=== PATIENT | male | born 1965 | race Caucasian/White ===

== ENCOUNTER 2020-10-02 18:21 | Inpatient (IN) | payer OTHER ==
[~2020-10-02] VITALS: Ht 175.3 cm; Wt 68.6 kg
[~2020-10-02 18:21] MED LIST: ALBUTEROL0.63 MG/3 INH; ALDACTONE 25MG25 MG PO; ASPIRIN EC81 MG PO; ATORVASTATIN CA20 MG PO; BUMETANIDE1 MG PO; CARVEDILOL12.5 MG PO; DIGOX125 MCG PO; DIGOXIN125 MCG PO; ELIQUIS5 MG PO; FUROSEMIDE20 MG PO; FUROSEMIDE40 MG PO; IPRAT-ALBUT 0.5-3 ML INH; LASIX TAB 20 MG20 MG PO; LASIX40 MG PO; LEVOPHED DRIP; LIPITOR40 MG PO; LISINOPRIL10 MG PO; LOPRESSOR 25 MG25 MG PO; MELATONIN3 MG PO; MEROPENEM; METOPROLOL SUCC25 MG PO; METOPROLOL SUCC50 MG PO; PREDNISONE20 MG PO; PROTONIX40 MG PO; VANCOMYCIN; [UNRECOGNIZED DRUG - REMARK]; heparin drip
[2020-10-02 20:54] LABS: RED BLOOD COUNT 5.69 M/UL (4.20-5.50); WHITE BLOOD COUNT 10.2 K/UL (4.5-11.0)
[2020-10-02 21:09] LABS: BUN/CREATININE RATIO 28 (0-10)
[2020-10-03 04:20] LABS: HEMOGLOBIN 13.7 gm/dl (14.0-17.5); RED BLOOD COUNT 5.98 M/UL (4.20-5.50); WHITE BLOOD COUNT 9.7 K/UL (4.5-11.0)
[2020-10-03 04:42] LABS: BUN/CREATININE RATIO 22 (0-10)
[2020-10-03] MEDS ORDERED: VENTOLIN HFA 66.7 GM INH (11:09)
[2020-10-03] MEDS ORDERED: DIURETIC SOFTGE50 MG PO (11:17)
[2020-10-03] MEDS ORDERED: TOPROL XL25 MG PO (11:19)
[2020-10-03] MEDS ORDERED: ATORVASTATIN CA40 MG PO (16:55)
[2020-10-03] MEDS ORDERED: ALBUTEROL2.5 MG/3 M INH (17:43)
[2020-10-03] MEDS ORDERED: ADULT LOW DOSE81 MG PO (19:28)
[2020-10-05 05:45] LABS: WHITE BLOOD COUNT 7.4 K/UL (4.5-11.0)
[2020-10-05 05:58] LABS: HEMOGLOBIN 11.6 gm/dl (14.0-17.5); RED BLOOD COUNT 5.08 M/UL (4.20-5.50)
[2020-10-05 06:07] LABS: BUN/CREATININE RATIO 20 (0-10)
[2020-10-06 05:55] LABS: BUN/CREATININE RATIO 18 (0-10)
[2020-10-08] MEDS ORDERED: JANTOVEN7.5 MG PO (16:02)
[2020-10-08] MEDS ORDERED: ENOXAPARIN100 MG/1 M SC (16:10)
[2020-10-09] MEDS ORDERED: JANTOVEN7.5 MG PO (14:30)
== END 2020-10-09 17:33 | disposition home or self-care (01) | DRG 175 ==
LOC: ER1 18:21 → MED SURG 4 23:34 → CDU 23:34 → MED SURG 4 10-03 19:11
PROVIDERS: Emergency Medicine; Internal Medicine; Internal Medicine Infectious Disease; ADMIT Internal Medicine
DX: I26.99 Other pulmonary embolism without acute cor pulmonale (principal); I50.43 Acute on chronic combined systolic (congestive) and diastolic (congestive) heart failure; I13.0 Hypertensive heart and chronic kidney disease with heart failure and stage 1 through stage 4 chronic kidney disease, or unspecified chronic kidney disease; I42.9 Cardiomyopathy, unspecified; M48.54XA Collapsed vertebra, not elsewhere classified, thoracic region, initial encounter for fracture; N18.30 Chronic kidney disease, stage 3 unspecified; E78.5 Hyperlipidemia, unspecified; K21.9 Gastro-esophageal reflux disease without esophagitis; I27.20 Pulmonary hypertension, unspecified; Z20.822 Contact with and (suspected) exposure to COVID-19; F11.10 Opioid abuse, uncomplicated; F17.210 Nicotine dependence, cigarettes, uncomplicated; R91.8 Other nonspecific abnormal finding of lung field; J44.9 Chronic obstructive pulmonary disease, unspecified; Z83.3 Family history of diabetes mellitus; Z91.19 Patient's noncompliance with other medical treatment and regimen; Z82.49 Family history of ischemic heart disease and other diseases of the circulatory system; Z79.01 Long term (current) use of anticoagulants; Z88.2 Allergy status to sulfonamides
CPT/HCPCS: 36415; 71045; 80048; 80053; 80307; 81001; 82550; 82553; 83605; 83690; 83735; 83874; 83880; 84484; 85025; 85379; 85610; 85730; 87040; 93005; 94640; 94664; 94760; 96372; 96374; 99285; G0378; J1650; J2270; Q9967; U0002

== ENCOUNTER 2020-12-12 13:54 | Emergency (ER) | payer OTHER ==
[~2020-12-12 13:54] MED LIST changes: +ADULT LOW DOSE81 MG PO; +ALBUTEROL2.5 MG/3 M INH; +ATORVASTATIN CA40 MG PO; +DIURETIC SOFTGE50 MG PO; +ENOXAPARIN100 MG/1 M SC; +JANTOVEN7.5 MG PO; +TOPROL XL25 MG PO; +VENTOLIN HFA 66.7 GM INH
[2020-12-12 15:19] LABS: HEMOGLOBIN 15.5 gm/dl (14.0-17.5); RED BLOOD COUNT 6.11 M/UL (4.20-5.50); WHITE BLOOD COUNT 8.5 K/UL (4.5-11.0)
[2020-12-12 15:54] LABS: BUN/CREATININE RATIO 17 (0-10)
[2020-12-12] MEDS ORDERED: JANTOVEN5 MG PO (18:44)
[2020-12-12] MEDS ORDERED: BUMETANIDE2 MG PO (18:44)
== END 2020-12-12 19:45 | disposition home or self-care (01) ==
LOC: ER1 13:54
PROVIDERS: Family Medicine
DX: J44.0 Chronic obstructive pulmonary disease with (acute) lower respiratory infection (principal); J18.9 Pneumonia, unspecified organism; J44.1 Chronic obstructive pulmonary disease with (acute) exacerbation; I50.20 Unspecified systolic (congestive) heart failure; I42.8 Other cardiomyopathies; F15.10 Other stimulant abuse, uncomplicated; Z20.822 Contact with and (suspected) exposure to COVID-19; F17.210 Nicotine dependence, cigarettes, uncomplicated; Z88.0 Allergy status to penicillin; Z79.82 Long term (current) use of aspirin; Z79.899 Other long term (current) drug therapy
CPT/HCPCS: 0240U; 36600; 71045; 80053; 82550; 82553; 82803; 83605; 83874; 83880; 84484; 85025; 85610; 87040; 93005; 96365; 96372; 96375; 99285; J0696; J1650; J1940; J2930

== ENCOUNTER 2021-04-23 21:24 | Observation (INO) | payer OTHER ==
[~2021-04-23] VITALS: Ht 175.3 cm; Wt 65.8 kg
[~2021-04-23 21:24] MED LIST changes: +BUMETANIDE2 MG PO; +JANTOVEN5 MG PO
[2021-04-23 22:35] LABS: HEMOGLOBIN 15.5 gm/dl (14.0-17.5); RED BLOOD COUNT 5.44 M/UL (4.20-5.50); WHITE BLOOD COUNT 9.3 K/UL (4.5-11.0)
[2021-04-25 03:04] LABS: HEMOGLOBIN 14.2 gm/dl (14.0-17.5); RED BLOOD COUNT 5.15 M/UL (4.20-5.50); WHITE BLOOD COUNT 10.3 K/UL (4.5-11.0)
[2021-04-26 03:22] LABS: HEMOGLOBIN 14.5 gm/dl (14.0-17.5); RED BLOOD COUNT 5.17 M/UL (4.20-5.50); WHITE BLOOD COUNT 9.2 K/UL (4.5-11.0)
[2021-04-26] MEDS ORDERED: ENOXAPARIN80 MG/0.8 SC (12:30)
[2021-04-26] MEDS ORDERED: BUDESONIDE0.5 MG/2 M NEB (12:30)
[2021-04-26] MEDS ORDERED: BUMETANIDE1 MG PO ×3 (12:30→12:45)
[2021-04-26] MEDS ORDERED: JANTOVEN5 MG PO (12:30)
[2021-04-26] MEDS ORDERED: DIGOXIN125 MCG PO (12:30)
[2021-04-26] MEDS ORDERED: LIPITOR40 MG PO (12:45)
[2021-04-26] MEDS ORDERED: ANORO ELLIPTA1 EACH INH (14:04)
[2021-04-26] MEDS ORDERED: PREDNISONE10 MG PO (14:05)
== END 2021-04-26 19:59 | disposition home or self-care (01) ==
LOC: ER1 21:24 → CDU 04-24 01:53 → M/S 04-24 17:31
PROVIDERS: Emergency Medicine; Internal Medicine; ADMIT Internal Medicine
DX: J44.1 Chronic obstructive pulmonary disease with (acute) exacerbation (principal); J96.01 Acute respiratory failure with hypoxia; R07.89 Other chest pain; R91.1 Solitary pulmonary nodule; I13.0 Hypertensive heart and chronic kidney disease with heart failure and stage 1 through stage 4 chronic kidney disease, or unspecified chronic kidney disease; I50.42 Chronic combined systolic (congestive) and diastolic (congestive) heart failure; N18.30 Chronic kidney disease, stage 3 unspecified; I42.8 Other cardiomyopathies; I25.10 Atherosclerotic heart disease of native coronary artery without angina pectoris; F15.10 Other stimulant abuse, uncomplicated; E78.5 Hyperlipidemia, unspecified; R77.8 Other specified abnormalities of plasma proteins; I27.20 Pulmonary hypertension, unspecified; K21.9 Gastro-esophageal reflux disease without esophagitis; M47.816 Spondylosis without myelopathy or radiculopathy, lumbar region; F17.210 Nicotine dependence, cigarettes, uncomplicated; R74.01 Elevation of levels of liver transaminase levels; D69.6 Thrombocytopenia, unspecified; R94.31 Abnormal electrocardiogram [ECG] [EKG]; Z98.1 Arthrodesis status; Z79.82 Long term (current) use of aspirin; Z79.01 Long term (current) use of anticoagulants; Z88.0 Allergy status to penicillin; Z20.822 Contact with and (suspected) exposure to COVID-19; Z86.718 Personal history of other venous thrombosis and embolism; Z87.81 Personal history of (healed) traumatic fracture; Z86.59 Personal history of other mental and behavioral disorders; Z82.49 Family history of ischemic heart disease and other diseases of the circulatory system
CPT/HCPCS: ECHO; 36415; 36600; 71045; 80053; 80162; 82550; 82553; 82803; 83690; 83735; 83874; 83880; 84100; 84484; 85025; 85027; 85610; 85730; 93306; 94640; 94664; 94760; 96372; 96374; 96376; 99285; G0378; J1650; J2920; J2930; Q9967; U0002

== ENCOUNTER 2021-04-27 15:05 | Emergency (ER) | payer OTHER ==
[~2021-04-27 15:05] MED LIST changes: +ANORO ELLIPTA1 EACH INH; +BUDESONIDE0.5 MG/2 M NEB; +ENOXAPARIN80 MG/0.8 SC; +PREDNISONE10 MG PO
[2021-04-27 16:04] LABS: RED BLOOD COUNT 6.29 M/UL (4.20-5.50); WHITE BLOOD COUNT 11.5 K/UL (4.5-11.0)
[2021-04-27 16:54] LABS: BUN/CREATININE RATIO 25 (0-10)
== END 2021-04-27 17:35 | disposition home or self-care (01) ==
LOC: ER1 15:05
PROVIDERS: Preventive Medicine Occupational Medicine
DX: F15.10 Other stimulant abuse, uncomplicated (principal); I42.9 Cardiomyopathy, unspecified; I25.10 Atherosclerotic heart disease of native coronary artery without angina pectoris
CPT/HCPCS: 71045; 80053; 80162; 80307; 81001; 82550; 82553; 83690; 83874; 83880; 84484; 85025; 85610; 85652; 85730; 86140; 87086; 93005; 96374; 99285; G0480; J1160